=== PATIENT | female | born 1970 | race Asian ===

== ENCOUNTER → 2019-07-29 | Outpatient (CLI) | payer BC ==
[~2019-07-29] MED LIST: ASCO100T5 PO; FOLI0.4T2 PO; MACA500C PO; OMEG-26 PO; PNV91TAB3 PO; UBIQ100C3 PO; VITA1TAB3 PO; [UNRECOGNIZED DRUG - OTHER] PO
== END | disposition home or self-care (01) ==
LOC: CFH 09:22
PROVIDERS: ATTEND Obstetrics & Gynecology
DX: Z12.31 Encounter for screening mammogram for malignant neoplasm of breast (principal)
CPT/HCPCS: 76641; 77063; 77067